=== PATIENT | male | born 1945 | race Caucasian/White ===

== ENCOUNTER 2016-12-09 11:16 | Observation (INO) | payer MEDICARE ==
[~2016-12-09] VITALS: Ht 175.3 cm; Wt 99.1 kg
[~2016-12-09 11:16] MED LIST: AMOX1TAB64 PO; CEFD300C37 PO; DRON400T PO; FURO-93 PO; LANS15TA5 PO; LEVO125T5 PO; LISI-170 PO; METH750T87 PO; METO-99 PO; METO25TA35 PO; METOPROLOL PO; POTA10TA PO; RIVA20TA PO; SULF1TAB24 PO
[2016-12-09 11:39] VITALS: BP 163/95
[2016-12-09] MEDS: SODIUM CHLORIDE 0.9% 1,000 ML IV SCH ×3 (12:05→21:43)
[2016-12-09] MEDS ORDERED: ONDANSETRON 2MG/ML, 2ML IV PRN (12:30)
[2016-12-09] MEDS ORDERED: CEFAZOLIN PMX 1GM/50ML 50 ML IVPB ONE (12:30)
[2016-12-09 13:41] LABS: BLOOD UREA NITROGEN 9 mg/dL (7-18)
[2016-12-09] MEDS ORDERED: MIDAZOLAM 1 MG/ML, 5ML ONE (15:24)
[2016-12-09] MEDS ORDERED: CEFAZOLIN 1,000 MG ONE (15:24)
[2016-12-09] MEDS ORDERED: FENTANYL PF 250 MCG/5ML ONE (15:24)
[2016-12-09] MEDS ORDERED: CEFAZOLIN PMX 1GM/50ML 50 ML ONE (15:24)
[2016-12-09] MEDS ORDERED: LIDOCAINE 2%, 20ML ONE ×2 (15:24)
[2016-12-09 17:02] VITALS: BP 147/83
[2016-12-09 18:31] VITALS: BP 141/77
[2016-12-09] MEDS: SODIUM CHLORIDE FLUSH 10ML SYR IVF SCH (20:30)
[2016-12-09] MEDS ORDERED: TRAZODONE 150MG TABLET PO SCH (21:00)
[2016-12-09] MEDS: ACETAMINOPHEN 325 MG TABLET PO PRN (21:42)
[2016-12-09] MEDS: CEFAZOLIN PMX 1GM/50ML 50 ML IVPB SCH (23:55)
[2016-12-10 01:03] VITALS: BP 103/63
[2016-12-10] MEDS: ACETAMINOPHEN 325 MG TABLET PO PRN (04:51)
[2016-12-10] MEDS: CEFAZOLIN PMX 1GM/50ML 50 ML IVPB SCH (07:58)
[2016-12-10] MEDS: SODIUM CHLORIDE FLUSH 10ML SYR IVF SCH (07:58)
[2016-12-10 08:00] VITALS: BP 118/70
[2016-12-10] MEDS ORDERED: METO-99 PO (08:46)
== END 2016-12-10 10:08 | disposition home or self-care (01) ==
LOC: INTOOBSV 11:16 → 5SO 11:16
PROVIDERS: ADMIT Internal Medicine Cardiovascular Disease; ATTEND Internal Medicine Cardiovascular Disease
DX: I49.5 Sick sinus syndrome (principal); I48.0 Paroxysmal atrial fibrillation; I25.10 Atherosclerotic heart disease of native coronary artery without angina pectoris; G47.30 Sleep apnea, unspecified; I10 Essential (primary) hypertension; E78.5 Hyperlipidemia, unspecified; R00.1 Bradycardia, unspecified; F52.21 Male erectile disorder; I63.9 Cerebral infarction, unspecified; Z86.73 Personal history of transient ischemic attack (TIA), and cerebral infarction without residual deficits
CPT/HCPCS: 33208; 36415; 71010; 71020; 80048; 85025; 85610; 93005; 96365; 96375; 99152; 99153; C1779; C1785; C1892; G0378; J0690; J2250; J3010; J3490; 99156; 99157

== ENCOUNTER → 2017-05-26 | Outpatient (CLI) | payer MEDICARE ==
[~2017-05-26] MED LIST changes: -LANS15TA5 PO; +LANS15TA6 PO
== END | disposition home or self-care (01) ==
LOC: CFH 08:43
PROVIDERS: ATTEND Internal Medicine Cardiovascular Disease
DX: I08.3 Combined rheumatic disorders of mitral, aortic and tricuspid valves (principal); I77.819 Aortic ectasia, unspecified site; I11.9 Hypertensive heart disease without heart failure; I48.0 Paroxysmal atrial fibrillation; Z95.0 Presence of cardiac pacemaker; Z86.73 Personal history of transient ischemic attack (TIA), and cerebral infarction without residual deficits
CPT/HCPCS: 93306

== ENCOUNTER 2017-06-12 16:30 | Emergency (ER) | payer MEDICARE, OTHER ==
[~2017-06-12] VITALS: Ht 175.3 cm; Wt 100.0 kg
[2017-06-12] MEDS ORDERED: SODIUM CHLORIDE FLUSH 10ML SYR IVF ONE (17:00)
[2017-06-12] MEDS ORDERED: SODIUM CHLORIDE 0.9% 1,000ML IVBOLUS ONE (17:00)
[2017-06-12] MEDS ORDERED: ONDANSETRON 2MG/ML, 2ML IVPush ONE (17:00)
[2017-06-12] MEDS ORDERED: morphine SULFATE 10 MG/ML, 1ML ONE ×2 (17:04→18:09)
[2017-06-12] MEDS ORDERED: ONDANSETRON 2MG/ML, 2ML ONE (17:04)
[2017-06-12 17:13] LABS: HEMATOCRIT 38.3 % (39.2-51.8); HEMOGLOBIN 12.9 g/dL (13.7-18.0); WHITE BLOOD COUNT 5.3 x10^3/uL (3.4-10)
[2017-06-12] MEDS: MORPHINE SULFATE 4 MG/ML, 1ML IVPush PRN ×2 (17:23→18:10)
[2017-06-12 17:25] LABS: ASPARTATE AMINO TRANSFERASE 24 U/L (15-37); BLOOD UREA NITROGEN 11 mg/dL (7-18)
[2017-06-12 17:31] LABS: IS PT STATUS REG ER OR PRE ER? YES
[2017-06-12] MEDS ORDERED: HYDROmorphone 1 MG/ML, 1ML ONE (18:38)
[2017-06-12] MEDS ORDERED: HYDROmorphone 1 MG/ML, 1ML IV ONE (19:00)
[2017-06-12] MEDS ORDERED: OMNIPAQUE 350 MG/ML, 100ML BOTTLE ONE (20:06)
[2017-06-12 21:31] VITALS: BP 133/82
== END 2017-06-12 21:34 | disposition home or self-care (01) ==
LOC: ED 17:47
DX: R07.89 Other chest pain (principal); E03.9 Hypothyroidism, unspecified; Z86.73 Personal history of transient ischemic attack (TIA), and cerebral infarction without residual deficits; I25.10 Atherosclerotic heart disease of native coronary artery without angina pectoris
CPT/HCPCS: 36415; 71020; 71275; 74177; 76700; 80053; 83880; 84484; 85025; 85379; 93005; 96361; 96374; 96375; 96376; 99285; J1170; J2405; J7030; Q9967

== ENCOUNTER → 2017-09-14 | Outpatient (CLI) | payer MEDICARE, OTHER ==
[~2017-09-14] MED LIST changes: +REGADENOSON 0.4 MG/5 ML SYRINGE ONE
== END | disposition home or self-care (01) ==
LOC: RAD 07:27
PROVIDERS: ATTEND Internal Medicine Cardiovascular Disease
DX: I25.119 Atherosclerotic heart disease of native coronary artery with unspecified angina pectoris (principal)
CPT/HCPCS: 78452; 93017; A9502; J2785

== ENCOUNTER 2018-04-05 13:00 | Observation (INO) | payer MEDICARE, OTHER ==
[~2018-04-05] VITALS: Ht 175.3 cm; Wt 100.0 kg
[~2018-04-05 13:00] MED LIST changes: -REGADENOSON 0.4 MG/5 ML SYRINGE ONE
[2018-04-05] MEDS ORDERED: METO50TA82 PO (13:17)
[2018-04-05] MEDS ORDERED: SERT100T5 PO (13:17)
[2018-04-05] MEDS ORDERED: CYAN25009 PO (13:20)
[2018-04-05] MEDS ORDERED: MULT-6 PO (13:20)
[2018-04-05] MEDS ORDERED: FOLI0.4T2 PO (13:20)
[2018-04-05] MEDS ORDERED: TRAZ-136 PO (13:20)
[2018-04-05] MEDS ORDERED: CHOL200021 PO (13:20)
[2018-04-05] MEDS ORDERED: CA C1TAB63 PO (13:20)
[2018-04-05] MEDS ORDERED: SODIUM CHLORIDE FLUSH 10ML SYR IVF ONE (13:30)
[2018-04-05 13:43] LABS: BASOPHILS % (AUTO) 0 % (0-1); EOSINOPHILS # (AUTO) 0.02 x10^3/uL (0-0.4); EOSINOPHILS % (AUTO) 0 % (1-7); LYMPHOCYTES # (AUTO) 0.45 x10^3/uL (1-3.4); LYMPHOCYTES % (AUTO) 6 % (22-44); MD NO; MEAN CORPUSCULAR HEMOGLOBIN 29.5 pg (27.5-34.5); MEAN CORPUSCULAR VOLUME 86.8 fL (81-97); MEAN PLATELET VOLUME 8.2 fL (7.4-10.4); MONOCYTES # (AUTO) 0.34 x10^3/uL (0.2-0.8); MONOCYTES % (AUTO) 5 % (2-9); NEUTROPHILS # (AUTO) 6.65 x10^3/uL (1.8-6.8); NEUTROPHILS % (AUTO) 89 % (42-75); PLATELET COUNT 254 x10^3/uL (130-400); RED BLOOD COUNT 4.13 x10^6/uL (4.38-5.82); RED CELL DISTRIBUTION WIDTH 17.6 % (9.4-14.8)
[2018-04-05 13:52] LABS: ALBUMIN 3.8 g/dL (3.4-5.0); ANION GAP 6 mmol/L (5-15); CALCIUM 8.6 mg/dL (8.5-10.1); CHLORIDE 108 mmol/L (98-107)
[2018-04-05 13:57] LABS: ALANINE AMINOTRANSFERASE 23 U/L (12-78); ALKALINE PHOSPHATASE 72 U/L (45-117); BILIRUBIN,TOTAL 0.5 mg/dL (0.2-1.0); CREATININE 0.89 mg/dL (0.7-1.3); TOTAL PROTEIN 7.9 g/dL (6.4-8.2); TROPONIN I 0.026 ng/mL (0.000-0.045)
[2018-04-05 17:36] LABS: TROPONIN I 0.038 ng/mL (0.000-0.045)
[2018-04-05] MEDS ORDERED: ASPIRIN 81 MG TABLET CHEW PO ONE (18:00)
[2018-04-05] MEDS ORDERED: ASPIRIN 81 MG TABLET CHEW ONE (18:02)
[2018-04-05 19:32] VITALS: BP 131/81
[2018-04-05] MEDS ORDERED: SODIUM CHLORIDE 0.9% 1,000 ML IV SCH (20:06)
[2018-04-05] MEDS ORDERED: PROMETHAZINE 25 MG/ML, 1ML IM PRN (20:30)
[2018-04-05] MEDS ORDERED: GABAPENTIN 300 MG CAPSULE PO PRN (20:30)
[2018-04-05] MEDS ORDERED: ONDANSETRON ODT 4 MG PO PRN (20:30)
[2018-04-05] MEDS ORDERED: ACETAMINOPHEN 325 MG TABLET PO PRN (20:30)
[2018-04-05] MEDS ORDERED: ONDANSETRON 2MG/ML, 2ML IVPush PRN (20:30)
[2018-04-05] MEDS ORDERED: LABETALOL 5MG/ML, 20ML IVPush PRN (20:30)
[2018-04-05] MEDS ORDERED: DOCUSATE 100 MG CAPSULE PO PRN (20:30)
[2018-04-05] MEDS ORDERED: hydrALAzine 20 MG/ML, 1ML IVPush PRN (20:30)
[2018-04-05] MEDS ORDERED: LEVOTHYROXINE 125 MCG TABLET PO SCH (21:00)
[2018-04-05] MEDS ORDERED: TRAZODONE 50MG TABLET PO SCH (21:00)
[2018-04-05] MEDS: METOPROLOL TARTRATE 50 MG TABLET PO SCH (21:51)
[2018-04-05 23:54] LABS: TROPONIN I 0.027 ng/mL (0.000-0.045)
[2018-04-05 23:56] LABS: HEMOGLOBIN A1C 5.6 % (4.2-6.3)
[2018-04-05 23:59] LABS: FREE T4 (FREE THYROXINE) 0.98 ng/dL (0.76-1.46); THYROID STIMULATING HORMONE 0.232 mIU/L (0.358-3.740)
[2018-04-06 01:16] VITALS: BP 142/64
[2018-04-06 05:38] LABS: ALBUMIN 3.5 g/dL (3.4-5.0); ANION GAP 8 mmol/L (5-15); CALCIUM 8.2 mg/dL (8.5-10.1); CHLORIDE 110 mmol/L (98-107)
[2018-04-06 05:42] LABS: ALANINE AMINOTRANSFERASE 20 U/L (12-78); ALKALINE PHOSPHATASE 60 U/L (45-117); BILIRUBIN,TOTAL 0.5 mg/dL (0.2-1.0); CHOL/HDL RATIO 5.9; CHOLESTEROL, TOTAL 226 mg/dL (140-239); CREATININE 0.76 mg/dL (0.7-1.3); HDL CHOL % 17 % (26-37); HDL CHOLESTEROL (DIRECT) 38 mg/dL (40-60); LDL CHOLESTEROL,CALCULATED 165 mg/dL (54-169); LDL/HDL RATIO 4.3 (0.5-3.0); TOTAL PROTEIN 7.1 g/dL (6.4-8.2); TRIGLYCERIDES 113 mg/dL (50-200); VLDL CHOLESTEROL 23 mg/dL (0-25)
[2018-04-06 05:44] LABS: BASOPHILS # (AUTO) 0.02 x10^3/uL (0-0.1); BASOPHILS % (AUTO) 0 % (0-1); EOSINOPHILS # (AUTO) 0.01 x10^3/uL (0-0.4); EOSINOPHILS % (AUTO) 0 % (1-7); LYMPHOCYTES # (AUTO) 0.67 x10^3/uL (1-3.4); LYMPHOCYTES % (AUTO) 12 % (22-44); MD NO; MEAN CORPUSCULAR HEMOGLOBIN 28.9 pg (27.5-34.5); MEAN CORPUSCULAR HGB CONC 33.1 g/dL (33.2-36.2); MEAN CORPUSCULAR VOLUME 87.3 fL (81-97); MEAN PLATELET VOLUME 8.9 fL (7.4-10.4); MONOCYTES % (AUTO) 11 % (2-9); NEUTROPHILS # (AUTO) 4.25 x10^3/uL (1.8-6.8); NEUTROPHILS % (AUTO) 77 % (42-75); PLATELET COUNT 238 x10^3/uL (130-400); RED BLOOD COUNT 3.77 x10^6/uL (4.38-5.82); RED CELL DISTRIBUTION WIDTH 17.2 % (9.4-14.8)
[2018-04-06 05:46] LABS: TROPONIN I 0.021 ng/mL (0.000-0.045)
[2018-04-06 07:23] VITALS: BP 124/71
[2018-04-06] MEDS ORDERED: FOLIC ACID 1 MG TABLET PO SCH (09:00)
[2018-04-06] MEDS ORDERED: VIT K PO SCH (09:00)
[2018-04-06] MEDS ORDERED: CHOLECALCIFEROL 1,000 UNIT TABLET PO SCH (09:00)
[2018-04-06] MEDS ORDERED: VITAMIN D3 PO SCH (09:00)
[2018-04-06] MEDS ORDERED: MULTIVITAMIN 1 TABLET PO SCH (09:00)
[2018-04-06] MEDS ORDERED: TRAZODONE 50MG TABLET PO SCH (09:00)
[2018-04-06] MEDS ORDERED: LANSOPRAZOLE 15 MG PO SCH (09:00)
[2018-04-06] MEDS ORDERED: CYANOCOBALAMIN 1,000 MCG TABLET PO SCH (09:00)
[2018-04-06] MEDS ORDERED: SERTRALINE 100MG TABLET PO SCH (09:00)
[2018-04-06] MEDS ORDERED: CA CARBONATE PO SCH (09:00)
[2018-04-06] MEDS ORDERED: RIVAROXABAN 20 MG TABLET PO SCH (09:00)
[2018-04-06] MEDS: METOPROLOL TARTRATE 50 MG TABLET PO SCH (10:02)
[2018-04-06] MEDS ORDERED: ATOR40TA PO (10:34)
== END 2018-04-06 11:40 | disposition home or self-care (01) ==
LOC: ED 14:43 → EDIP 17:47 → INTOOBSV 17:47 → 5SO 18:58 → DCLOUNGE 04-06 11:28
PROVIDERS: ADMIT Internal Medicine; ATTEND Internal Medicine
DX: R07.89 Other chest pain (principal); D68.69 Other thrombophilia; F43.10 Post-traumatic stress disorder, unspecified; G47.33 Obstructive sleep apnea (adult) (pediatric); I11.0 Hypertensive heart disease with heart failure; I25.10 Atherosclerotic heart disease of native coronary artery without angina pectoris; I25.2 Old myocardial infarction; I48.0 Paroxysmal atrial fibrillation; E03.9 Hypothyroidism, unspecified; I48.2 Chronic atrial fibrillation; I50.32 Chronic diastolic (congestive) heart failure; K21.9 Gastro-esophageal reflux disease without esophagitis; Z86.73 Personal history of transient ischemic attack (TIA), and cerebral infarction without residual deficits; Z95.0 Presence of cardiac pacemaker; Z87.891 Personal history of nicotine dependence
CPT/HCPCS: 36415; 71045; 80053; 80061; 83036; 83735; 84439; 84443; 84484; 85025; 93005; 99285; G0378; J7030

== ENCOUNTER → 2018-05-01 | Outpatient (CLI) | payer MEDICARE, OTHER ==
[~2018-05-01] MED LIST changes: +ATOR40TA PO; +CA C1TAB63 PO; +CHOL200021 PO; +CYAN25009 PO; +FOLI0.4T2 PO; +METO50TA82 PO; +MULT-6 PO; +SERT100T5 PO; +TRAZ-136 PO
== END | disposition home or self-care (01) ==
LOC: CFH 15:43
PROVIDERS: ATTEND Internal Medicine Cardiovascular Disease
DX: I35.0 Nonrheumatic aortic (valve) stenosis (principal); I34.8 Other nonrheumatic mitral valve disorders; I51.7 Cardiomegaly; I25.10 Atherosclerotic heart disease of native coronary artery without angina pectoris; I48.91 Unspecified atrial fibrillation; Z86.73 Personal history of transient ischemic attack (TIA), and cerebral infarction without residual deficits
CPT/HCPCS: 93306

== ENCOUNTER 2018-09-30 22:34 | Emergency (ER) | payer MEDICARE, OTHER ==
[~2018-09-30] VITALS: Ht 175.3 cm; Wt 103.4 kg
[~2018-09-30 22:34] MED LIST changes: +SERT100T32 PO; -SERT100T5 PO; -TRAZ-136 PO; +TRAZ50TA66 PO
[2018-09-30] MEDS ORDERED: PROPOFOL 10 MG/ML, 20ML IVPush ONE (23:00)
[2018-09-30] MEDS ORDERED: SODIUM CHLORIDE FLUSH 10ML SYR IVF ONE (23:00)
[2018-09-30 23:02] LABS: BASOPHILS # (AUTO) 0.02 x10^3/uL (0-0.1); BASOPHILS % (AUTO) 1 % (0-1); EOSINOPHILS # (AUTO) 0.18 x10^3/uL (0-0.4); EOSINOPHILS % (AUTO) 4 % (1-7); LYMPHOCYTES # (AUTO) 1.34 x10^3/uL (1-3.4); LYMPHOCYTES % (AUTO) 32 % (22-44); MD NO; MEAN CORPUSCULAR HEMOGLOBIN 27.9 pg (27.5-34.5); MEAN CORPUSCULAR HGB CONC 33.7 g/dL (33.2-36.2); MEAN CORPUSCULAR VOLUME 82.7 fL (81-97); MEAN PLATELET VOLUME 8.7 fL (7.4-10.4); MONOCYTES # (AUTO) 0.43 x10^3/uL (0.2-0.8); MONOCYTES % (AUTO) 10 % (2-9); NEUTROPHILS # (AUTO) 2.25 x10^3/uL (1.8-6.8); NEUTROPHILS % (AUTO) 53 % (42-75); PLATELET COUNT 269 x10^3/uL (130-400); RED BLOOD COUNT 4.31 x10^6/uL (4.38-5.82); RED CELL DISTRIBUTION WIDTH 15.2 % (9.4-14.8)
[2018-09-30] MEDS ORDERED: PROPOFOL 10 MG/ML, 20ML ONE (23:08)
[2018-09-30 23:13] LABS: ANION GAP 6 mmol/L (5-15); CALCIUM 8.3 mg/dL (8.5-10.1); CHLORIDE 107 mmol/L (98-107); CREATININE 0.97 mg/dL (0.7-1.3)
[2018-09-30 23:22] LABS: T4 (THYROXINE) 9.2 mcg/dL (4.5-12.1); THYROID STIMULATING HORMONE 0.178 mIU/L (0.358-3.740)
--- NOTE | 2018-09-30 23:30 | NUR ---
first contact with pt. pt c/o palpitation with sob since 9pm tonight. pt denies n/v/d at this time. pt's aox4. resps even and unlabored. all monitors in place. call light within reach. pt's at bedside.
[2018-09-30 23:31] LABS: INTERNATIONAL NORMALIZED RATIO 1.08 (0.93-1.1); PROTHROMBIN TIME 11.3 Seconds (9.6-11.5)
--- NOTE | 2018-10-01 00:02 | NUR ---
cerdioversion is done by [facility] vinicio. pt tolerated well. see paper charting.
[2018-10-01 00:25] VITALS: BP 125/68
--- NOTE | 2018-10-01 00:25 | NUR ---
pt resting in [facility]. nsr on site monitor rate 60's at this time. pt's at bedside. pt's aox4. resps even and unlabored. all monitors in place. call light within reach.
--- NOTE | 2018-10-01 01:10 | NUR ---
pt given dc instructions. pt's aox4. resps even and unlabored. pt amb to dc with steady gait. no acute distress at dc.
== END 2018-10-01 00:41 | disposition home or self-care (01) ==
LOC: ED 10-01 00:30
DX: I48.91 Unspecified atrial fibrillation (principal); I10 Essential (primary) hypertension; I25.2 Old myocardial infarction; I25.10 Atherosclerotic heart disease of native coronary artery without angina pectoris; Z86.73 Personal history of transient ischemic attack (TIA), and cerebral infarction without residual deficits
CPT/HCPCS: 36415; 71045; 80048; 82040; 84436; 84443; 85025; 85610; 85730; 92960; 93005; 99152; 99285

== ENCOUNTER 2019-09-30 06:39 | Inpatient (IN) | payer MEDICARE, OTHER ==
[~2019-09-30] VITALS: Ht 175.3 cm; Wt 96.8 kg
[2019-09-30] MEDS ORDERED: ASPIRIN 325 MG TABLET PO STA (06:54)
--- NOTE | 2019-09-30 06:58 | NUR ---
PT ARRIVED [phone] CODE CARDIAC PAGED [phone] CARDIOLOGY PAGED [phone] OPHTHALMIC TECHNICIAN APPRENTICE CALLED AND IN HOUSE [phone] DR MERRITT RETURNED PAGE AND SPOKE WITH DR CABRAL.
[2019-09-30] MEDS ORDERED: MIDAZOLAM 1 MG/ML, 5ML ONE (07:03)
[2019-09-30] MEDS ORDERED: FENTANYL PF 250 MCG/5ML ONE (07:03)
[2019-09-30] MEDS ORDERED: HEPARIN 1,000 UNITS/ML, 10ML ONE (07:04)
[2019-09-30] MEDS ORDERED: LIDOCAINE 1%, 20ML ONE (07:04)
[2019-09-30] MEDS ORDERED: VERAPAMIL 2.5 MG/ML, 2ML ONE (07:04)
[2019-09-30] MEDS ORDERED: MORPHINE SULFATE 4 MG/ML, 1ML ONE (07:09)
[2019-09-30] MEDS ORDERED: ONDANSETRON 2MG/ML, 2ML ONE (07:09)
[2019-09-30] MEDS: MORPHINE SULFATE 4 MG/ML, 1ML IVPush PRN ×2 (07:12→10:35)
[2019-09-30 07:19] LABS: BASOPHILS # (AUTO) 0.04 x10^3/uL (0-0.1); BASOPHILS % (AUTO) 1 % (0-1); EOSINOPHILS # (AUTO) 0.19 x10^3/uL (0-0.4); EOSINOPHILS % (AUTO) 3 % (1-7); LYMPHOCYTES % (AUTO) 23 % (22-44); MD NO; MEAN CORPUSCULAR HEMOGLOBIN 26.5 pg (27.5-34.5); MEAN CORPUSCULAR HGB CONC 32.7 g/dL (33.2-36.2); MEAN CORPUSCULAR VOLUME 81.2 fL (81-97); MEAN PLATELET VOLUME 9.4 fL (7.4-10.4); MONOCYTES # (AUTO) 0.64 x10^3/uL (0.2-0.8); MONOCYTES % (AUTO) 11 % (2-9); NEUTROPHILS # (AUTO) 3.47 x10^3/uL (1.8-6.8); NEUTROPHILS % (AUTO) 62 % (42-75); PLATELET COUNT 328 x10^3/uL (130-400); RED BLOOD COUNT 4.92 x10^6/uL (4.38-5.82); RED CELL DISTRIBUTION WIDTH 17.6 % (9.4-14.8)
[2019-09-30] MEDS ORDERED: ONDANSETRON 2MG/ML, 2ML IVPush ONE (07:30)
[2019-09-30 07:31] LABS: TROPONIN I 0.022 ng/mL (0.000-0.045)
[2019-09-30] MEDS ORDERED: OMNIPAQUE 350 MG/ML, 100ML BOTTLE ONE (07:33)
[2019-09-30 07:34] LABS: INTERNATIONAL NORMALIZED RATIO 1.76 (0.93-1.1); PROTHROMBIN TIME 18.8 Seconds (9.6-11.5)
[2019-09-30] MEDS ORDERED: BIVALIRUDIN 250 MG ONE (07:43)
--- NOTE | 2019-09-30 07:49 | NUR ---
LATE ENTRY FOR EVENTS [phone] - [phone]. PT TO ROOM FROM TRIAGE VIA WHEELCHAIR, DR CABRAL AT BEDSIDE. PIV EST AND LABS DRAWN, CLOTHES REMOVED, ALL MONITORS PLACED AND RADIOPAQUE DEFIB PADS PLACED, BP ON LEFT ARM, PULSE OX ON RIGHT THUMB. PT WITH LEFT SIDE CP RADIATES TO BACK, 02/23. PT MED NOTED FOR PAIN. TRANSPORT MONITOR IN PLACE AND PT TO CT WITH RN X [address] FOR /RO AORTIC DISECTION COMPLETED AND DR CABRAL IN CT TO REVIEW. ORDER FOR ASA REC'D AND GIVEN. PT TO ROOF SHINGLER AND RPT GIVEN TO ROOF SHINGLER RN. PTS WAS WITH PT T/O THE ED AND CT PROCEDURES. PT IN CCU WAITING ROOM AND ROOF SHINGLER AWARE.
[2019-09-30] MEDS: SODIUM CHLORIDE 0.9% 1,000 ML IV SCH ×3 (08:05→15:38)
[2019-09-30 09:11] VITALS: BP 97/68
[2019-09-30] MEDS ORDERED: CYCLOBENZAPRINE 10 MG TABLET PO PRN (10:30)
[2019-09-30] MEDS ORDERED: MORPHINE SULFATE 4 MG/ML, 1ML IVPush PRN (10:30)
[2019-09-30 11:33] LABS: HCT (SEDRATE) 35.4 % (39.2-51.8)
[2019-09-30 11:55] LABS: TROPONIN I 0.039 ng/mL (0.000-0.045)
[2019-09-30] MEDS: HYDROcodone/APAP 5/325 TABLET PO PRN ×2 (12:55→13:52)
[2019-09-30 13:10] VITALS: BP 132/80
[2019-09-30] MEDS: morphine SULFATE 10 MG/ML, 1ML IVPush PRN ×2 (15:24→18:58)
[2019-09-30 16:35] LABS: TROPONIN I 0.032 ng/mL (0.000-0.045)
[2019-09-30] MEDS: CARVEDILOL 12.5 MG TABLET PO SCH (17:46)
[2019-09-30 20:43] VITALS: BP 126/76
[2019-09-30] MEDS ORDERED: LEVOTHYROXINE 125 MCG TABLET PO SCH (21:00)
[2019-09-30] MEDS ORDERED: METOPROLOL TARTRATE 50 MG TAB PO SCH (21:00)
[2019-09-30 22:52] VITALS: BP 112/67
[2019-09-30] MEDS ORDERED: METOPROLOL 1 MG/ML, 5ML IVPush ONE (23:00)
[2019-09-30 23:43] VITALS: BP 132/95
[2019-10-01 00:58] VITALS: BP 125/84
[2019-10-01] MEDS ORDERED: METOPROLOL 1 MG/ML, 5ML IVPush ONE ×2 (04:00)
[2019-10-01] MEDS: SODIUM CHLORIDE 0.9% 1,000 ML IV SCH ×2 (05:00→06:28)
[2019-10-01 05:03] VITALS: BP 131/88
[2019-10-01] MEDS: CARVEDILOL 12.5 MG TABLET PO SCH (05:06)
[2019-10-01 05:38] LABS: ALBUMIN 3.5 g/dL (3.4-5.0); ANION GAP 6 mmol/L (5-15); CALCIUM 7.9 mg/dL (8.5-10.1); CHLORIDE 108 mmol/L (98-107)
[2019-10-01 05:48] LABS: BASOPHILS % (AUTO) 0 % (0-1); EOSINOPHILS % (AUTO) 0 % (1-7); LYMPHOCYTES % (AUTO) 11 % (22-44); MD NO; MEAN CORPUSCULAR HEMOGLOBIN 26.7 pg (27.5-34.5); MEAN CORPUSCULAR HGB CONC 32.7 g/dL (33.2-36.2); MEAN CORPUSCULAR VOLUME 81.6 fL (81-97); MONOCYTES # (AUTO) 0.22 x10^3/uL (0.2-0.8); MONOCYTES % (AUTO) 5 % (2-9); NEUTROPHILS # (AUTO) 3.96 x10^3/uL (1.8-6.8); NEUTROPHILS % (AUTO) 84 % (42-75); PLATELET COUNT 231 x10^3/uL (130-400); RED BLOOD COUNT 4.27 x10^6/uL (4.38-5.82); RED CELL DISTRIBUTION WIDTH 18.2 % (9.4-14.8)
[2019-10-01 05:50] LABS: ALANINE AMINOTRANSFERASE 11 U/L (12-78); ALKALINE PHOSPHATASE 60 U/L (45-117); BILIRUBIN,TOTAL 0.4 mg/dL (0.2-1.0); CHOL/HDL RATIO 3.2; CHOLESTEROL, TOTAL 121 mg/dL (140-239); CREATININE 0.79 mg/dL (0.7-1.3); HDL CHOL % 31 % (26-37); HDL CHOLESTEROL (DIRECT) 38 mg/dL (40-60); LDL CHOLESTEROL,CALCULATED 66 mg/dL (54-169); LDL/HDL RATIO 1.7 (0.5-3.0); TOTAL PROTEIN 7.3 g/dL (6.4-8.2); TRIGLYCERIDES 87 mg/dL (50-200); VLDL CHOLESTEROL 17 mg/dL (0-25)
[2019-10-01 07:25] VITALS: BP 124/95
[2019-10-01] MEDS ORDERED: METOPROLOL 1 MG/ML, 5ML ONE (08:09)
[2019-10-01] MEDS: CHOLECALCIFEROL 1,000 UNIT TABLET PO SCH (08:21)
[2019-10-01] MEDS: FOLIC ACID 1 MG TABLET PO SCH (08:21)
[2019-10-01] MEDS: SERTRALINE 100MG TABLET PO SCH (08:22)
[2019-10-01] MEDS: LOSARTAN 25MG TABLET PO SCH (08:22)
[2019-10-01] MEDS: MULTIVITAMIN 1 TABLET PO SCH (08:22)
[2019-10-01] MEDS: CYANOCOBALAMIN 1,000 MCG TABLET PO SCH (08:22)
[2019-10-01] MEDS ORDERED: TRAZODONE 50MG TABLET PO SCH ×2 (09:00→21:00)
[2019-10-01] MEDS ORDERED: RIVAROXABAN 20 MG TABLET PO SCH (09:00)
[2019-10-01] MEDS ORDERED: CARVEDILOL 12.5 MG TABLET PO ONE (10:00)
[2019-10-01 10:48] LABS: INTERNATIONAL NORMALIZED RATIO 1.74 (0.93-1.1); PROTHROMBIN TIME 18.5 Seconds (9.6-11.5)
[2019-10-01] MEDS ORDERED: WARF5TAB PO (11:28)
[2019-10-01 12:35] VITALS: BP 133/80
[2019-10-01] MEDS: CARVEDILOL 25 MG TABLET PO SCH (17:29)
[2019-10-01] MEDS ORDERED: WARFARIN 5 MG TABLET PO-COUM ONE (18:00)
[2019-10-01 19:20] VITALS: BP 128/76
[2019-10-01] MEDS: HYDROcodone/APAP 5/325 TABLET PO PRN (19:39)
[2019-10-01] MEDS: morphine SULFATE 10 MG/ML, 1ML IVPush PRN (21:50)
[2019-10-02 00:34] VITALS: BP 126/72
[2019-10-02 05:34] LABS: INTERNATIONAL NORMALIZED RATIO 2.04 (0.93-1.1); PROTHROMBIN TIME 21.8 Seconds (9.6-11.5)
[2019-10-02] MEDS ORDERED: LEVOTHYROXINE 200 MCG TABLET PO SCH (06:00)
[2019-10-02] MEDS: CARVEDILOL 25 MG TABLET PO SCH (06:21)
[2019-10-02 07:41] VITALS: BP 107/75
[2019-10-02] MEDS: CYANOCOBALAMIN 1,000 MCG TABLET PO SCH (08:35)
[2019-10-02] MEDS: SERTRALINE 100MG TABLET PO SCH (08:35)
[2019-10-02] MEDS: FOLIC ACID 1 MG TABLET PO SCH (08:35)
[2019-10-02] MEDS: MULTIVITAMIN 1 TABLET PO SCH (08:35)
[2019-10-02] MEDS: LOSARTAN 25MG TABLET PO SCH (08:36)
[2019-10-02] MEDS: CHOLECALCIFEROL 1,000 UNIT TABLET PO SCH (08:36)
[2019-10-02 12:39] VITALS: BP 121/74
[2019-10-02] MEDS ORDERED: PRED20TA PO (12:58)
[2019-10-02] MEDS ORDERED: LOSA25TA25 PO (12:58)
[2019-10-02] MEDS ORDERED: LEVO200T PO (12:58)
[2019-10-02] MEDS ORDERED: CARV25TA12 PO (12:58)
[2019-10-02] MEDS ORDERED: WARFARIN 5 MG TABLET PO-COUM ONE (18:00)
== END 2019-10-02 15:37 | disposition home or self-care (01) | DRG 287 ==
LOC: ED 07:36 → EDIP 07:53 → 5SO 08:28
PROVIDERS: ADMIT Internal Medicine Cardiovascular Disease; ATTEND Hospitalist
PROC: 4A023N7 Measurement of Cardiac Sampling and Pressure, Left Heart, Percutaneous Approach (ICD-10-PCS; principal; 2019-09-30)
PROC: B211YZZ Fluoroscopy of Multiple Coronary Arteries using Other Contrast (ICD-10-PCS; 2019-09-30)
PROC: B215YZZ Fluoroscopy of Left Heart using Other Contrast (ICD-10-PCS; 2019-09-30)
DX: I51.4 Myocarditis, unspecified (principal); D68.69 Other thrombophilia; I50.32 Chronic diastolic (congestive) heart failure; Z88.8 Allergy status to other drugs, medicaments and biological substances; E78.5 Hyperlipidemia, unspecified; E89.0 Postprocedural hypothyroidism; F43.10 Post-traumatic stress disorder, unspecified; I11.0 Hypertensive heart disease with heart failure; I25.10 Atherosclerotic heart disease of native coronary artery without angina pectoris; I25.2 Old myocardial infarction; I48.0 Paroxysmal atrial fibrillation; Z79.01 Long term (current) use of anticoagulants; Z82.49 Family history of ischemic heart disease and other diseases of the circulatory system; Z86.73 Personal history of transient ischemic attack (TIA), and cerebral infarction without residual deficits; Z87.891 Personal history of nicotine dependence; Z95.0 Presence of cardiac pacemaker
CPT/HCPCS: 36415; 71045; 71275; 80047; 80053; 80061; 84443; 84484; 85025; 85610; 85651; 85730; 86140; 93005; 93306; 93458; 96374; 99156; 99291; C1760; C1769; C1894; G0378; J0583; J1644; J2250; J2405; J3010; Q9967; J2270; J7030; J7512

== ENCOUNTER 2019-10-16 10:25 | Day surgery (SDC) | payer MEDICARE, OTHER ==
[~2019-10-16] VITALS: Ht 175.3 cm; Wt 96.4 kg
[~2019-10-16 10:25] MED LIST changes: +CARV25TA12 PO; +LEVO200T PO; +LOSA25TA25 PO; +PRED20TA PO; +WARF5TAB2 PO
[2019-10-16] MEDS ORDERED: LEVO125T5 PO (10:51)
[2019-10-16] MEDS ORDERED: ALIR75PE SQ (10:55)
[2019-10-16] MEDS ORDERED: METO50TA82 PO (10:55)
[2019-10-16 11:02] VITALS: BP 112/70
[2019-10-16] MEDS ORDERED: PROPOFOL 10 MG/ML, 20ML ONE (11:09)
[2019-10-16 11:10] LABS: BASOPHILS # (AUTO) 0.03 x10^3/uL (0-0.1); BASOPHILS % (AUTO) 0 % (0-1); EOSINOPHILS # (AUTO) 0.08 x10^3/uL (0-0.4); EOSINOPHILS % (AUTO) 1 % (1-7); LYMPHOCYTES # (AUTO) 0.85 x10^3/uL (1-3.4); LYMPHOCYTES % (AUTO) 9 % (22-44); MD NO; MEAN CORPUSCULAR HEMOGLOBIN 26.4 pg (27.5-34.5); MEAN CORPUSCULAR HGB CONC 31.9 g/dL (33.2-36.2); MEAN CORPUSCULAR VOLUME 82.7 fL (81-97); MEAN PLATELET VOLUME 9.1 fL (7.4-10.4); MONOCYTES # (AUTO) 0.27 x10^3/uL (0.2-0.8); MONOCYTES % (AUTO) 3 % (2-9); NEUTROPHILS # (AUTO) 7.97 x10^3/uL (1.8-6.8); NEUTROPHILS % (AUTO) 87 % (42-75); PLATELET COUNT 293 x10^3/uL (130-400); RED CELL DISTRIBUTION WIDTH 18.1 % (9.4-14.8)
[2019-10-16 11:18] LABS: ANION GAP 7 mmol/L (5-15); CALCIUM 8.1 mg/dL (8.5-10.1); CHLORIDE 108 mmol/L (98-107); CREATININE 0.89 mg/dL (0.7-1.3)
[2019-10-16 11:32] LABS: INTERNATIONAL NORMALIZED RATIO 2.34 (0.93-1.1)
== END 2019-10-16 12:52 | disposition home or self-care (01) ==
LOC: CACL 10:25
PROVIDERS: ATTEND Internal Medicine Cardiovascular Disease
DX: I48.0 Paroxysmal atrial fibrillation (principal); I10 Essential (primary) hypertension; E78.5 Hyperlipidemia, unspecified; I25.10 Atherosclerotic heart disease of native coronary artery without angina pectoris; G47.33 Obstructive sleep apnea (adult) (pediatric); F52.21 Male erectile disorder; Z79.01 Long term (current) use of anticoagulants; Z79.890 Hormone replacement therapy; Z79.899 Other long term (current) drug therapy; Z86.73 Personal history of transient ischemic attack (TIA), and cerebral infarction without residual deficits; Z88.8 Allergy status to other drugs, medicaments and biological substances; Z95.0 Presence of cardiac pacemaker
CPT/HCPCS: 36415; 80048; 85025; 85610; 92960; J2704

== ENCOUNTER → 2021-02-22 | Outpatient (CLI) | payer MEDICARE, OTHER ==
[~2021-02-22] MED LIST changes: +ALIR75PE5 SQ; -DRON400T PO; +DRON400T6 PO; -FOLI0.4T2 PO; +FOLI0.4T5 PO; +SULF-23 PO; -SULF1TAB24 PO
== END | disposition home or self-care (01) ==
LOC: CFH 08:33
PROVIDERS: ATTEND Internal Medicine Cardiovascular Disease
DX: I08.3 Combined rheumatic disorders of mitral, aortic and tricuspid valves (principal); I11.9 Hypertensive heart disease without heart failure; E78.5 Hyperlipidemia, unspecified; I48.91 Unspecified atrial fibrillation; Z87.891 Personal history of nicotine dependence
CPT/HCPCS: 93306; 93356